=== PATIENT | male | born 1940 | race Caucasian/White ===

== ENCOUNTER → 2016-12-29 | Outpatient (CLI) | payer MEDICARE ==
[~2016-12-29] MED LIST: B COTAB3 PO; ENAL5TAB98 PO; FISH1000 PO; HYDR-2768 PO; MEVA40TA6 PO; TAB-TAB PO
--- NOTE | 2016-12-30 11:16 | RSPPFT ---
DATE OF PROCEDURE: 12/29/16 COMMENTS: Spirometry with FVC of 3.6 at 85% of predicted, FEV1 of 2.1 at 65%, FEV1/FVC ratio is decreased. Flow is decreased at FEF 25, FEF 50, FEF 75 and FEF 25-75. There is a mild response after bronchodilator treatment. Lung volumes show residual volumes is increased. TLC is normal. Diffusion capacity is mildly decreased. Flow volume loop indicates an obstructive pattern. IMPRESSION: 1. Moderately severe obstructive lung disease. 2. Mild response to bronchodilator treatment. 3. Lung volumes show hyperinflation. 4. Mild decrease in diffusion capacity.
== END ==
LOC: PHRSP 08:21
PROVIDERS: ATTEND Specialist
DX: R06.00 Dyspnea, unspecified (principal)
CPT/HCPCS: 94060; 94726; 94729